=== PATIENT | male | born 1990 | race Two or more races ===

== ENCOUNTER 2016-09-28 01:37 | Emergency (ER) | payer OTHER, MEDICAID ==
[2016-09-28 01:50] VITALS: PULSE 71
--- NOTE | 2016-09-28 02:33 | EDPHY ---
H & P Stated Complaint: burning with urination testicular discomfort reflux sx Time Seen by Provider: 09/28/16 02:05 HPI/ROS: Chief Complaint: Burning with urination HPI: 25-year-old male started having burning with urination or urinary frequency at 7 o'clock yesterday evening. Has a history of urinary tract infections in the past. Some subjective chills. No back pain. Some discomfort in his groin. Does not have a history of sexually transmitted disease. Is currently in a monogamous relationship. No diarrhea or constipation. No nausea or vomiting. No abdominal pain. No back or flank pain. ROS: 10 point Review of Systems is negative except as noted in the HPI. PMH: None known medications: None Allergies: No known drug allergies Social History: No smoking, occasional alcohol, no recreational drug use Family History: non-contributory Physical Exam: Gen: Awake, Alert, No Distress HEENT: Nose: no rhinorrhea Eyes: PERRLA, EOMI Mouth: Moist mucosa Neck: Supple, no JVD Chest: nontender, lungs clear to auscultation Heart: S1, S2 normal, no murmur Abd: Soft, non-tender, no guarding Genital: Testes are distended, there are nontender, there is no swelling, there is normal lie, there is no scrotal masses, normal cremasteric Back: no CVA tenderness, no midline tenderness Ext: no edema, non-tender Skin: no rash Neuro: CN II-XII intact, Sensation grossly intact, Strength 5/5 in bilateral upper and lower extremities - Personal History Current Tetanus/Diphtheria Vaccine: Yes Current Tetanus Diphtheria and Acellular Pertussis (TDAP): Yes - Medical/Surgical History Hx Asthma: No Hx Chronic Respiratory Disease: No Hx Diabetes: No Hx Cardiac Disease: No Hx Renal Disease: No Hx Cirrhosis: No Hx Alcoholism: No Hx HIV/AIDS: No Hx Splenectomy or Spleen Trauma: No - Social History Smoking Status: Never smoked Constitutional: Initial Vital Signs Temperature (C) 36 C 09/28/16 01:41 Heart Rate 71 09/28/16 01:41 Respiratory Rate 18 09/28/16 01:41 Blood Pressure 133/81 H 09/28/16 01:41 O2 Sat (%) 99 09/28/16 01:41 O2 Delivery Mode Room Air Allergies/Adverse Reactions: No Known Allergies Allergy (Unverified 09/28/16 01:41) Home Medications: Medication Instructions Recorded NK [No Known Home Meds] 09/28/16 Medical Decision Making ED Course/Re-evaluation: Patient's UA is negative. He is not complaining of pain and burning in his urethra. STD GC chlamydia has been sent. Does not until later today. Will treat him with ceftriaxone and azithromycin here. He can follow up later with those results. Will send him home with analgesia as well. He will return for any worsening problems. Otherwise he continues to have symptoms he will follow up with Urology. - Data Points Laboratory Results: 09/28/16 09/28/16 02:00 02:00 Urine Color PALE YELLOW Urine Appearance CLEAR Urine pH 6.0 (5.0-7.5) Ur Specific [place] 1.001 L (1.002-1.030) Urine Protein NEGATIVE (NEGATIVE) Urine Ketones NEGATIVE (NEGATIVE) Urine Blood NEGATIVE (NEGATIVE) Urine Nitrate NEGATIVE (NEGATIVE) Urine Bilirubin NEGATIVE (NEGATIVE) Urine Urobilinogen NEGATIVE EU EU (0.2-1.0) Ur Leukocyte Esterase NEGATIVE (NEGATIVE) Urine RBC NONE SEEN /hpf /hpf (0-3) Urine WBC 1-3 /hpf /hpf (0-3) Ur Epithelial Cells NONE SEEN /lpf /lpf (NONE-1+) Urine Glucose NEGATIVE (NEGATIVE) C.trachomatis RNA (TMA) Pending N.gonorrhoeae RNA (TMA) Pending Medications Given: Discontinued Medications Oxycodone/Acetaminophen (Percocet 5/325) 1 tab PO EDNOW ONE Stop: 09/28/16 03:25 Last Admin: 09/28/16 03:29 Dose: 1 tab Departure - Departure Disposition: Home, Routine, Self-Care Clinical Impression: Dysuria Condition: Good Instructions: Dysuria (ED), Hydrocodone/Acetaminophen (By mouth) Additional Instructions: Call in the next day or two to get your STD test results. If these tests are negative you should follow up with Urology for further evaluation of your symptoms. Referrals: KENZIE SALMON [Other] - As per Instructions Suraj Ziegler MD [Medical Doctor] - As per Instructions
[2016-09-28 03:01] LABS: COLOR PALE YELLOW; LEUKOCYTE ESTERASE,URINE NEGATIVE (NEGATIVE); NITRITE,URINE NEGATIVE (NEGATIVE)
[2016-09-28 03:21] LABS: RBC,URINE NONE SEEN /hpf (0-3)
[2016-09-28] MEDS ORDERED: OXYCODONE/APAP 5/325 TAB PO ONE (03:24)
[2016-09-28] MEDS ORDERED: AZITHROMYCIN 250 MG TAB PO ONE (03:42)
[2016-09-28] MEDS ORDERED: CEFTRIAXONE IM 350 MG/ML SYRINGE IM ONE (03:43)
[2016-09-28] MEDS ORDERED: HYDROCOD/APAP 5/325 PREPACK#6 BTL TAKEHOME ONE ×2 (04:09)
[2016-09-28 04:18] VITALS: BP 132/70; RESP 16; TEMP 98.1; O2SAT 98
[2016-09-28 13:37] LABS: CHLAMYDIA AMPLIFICATION GENPRB NEGATIVE (NEGATIVE)
== END 2016-09-28 04:18 | disposition home or self-care (01) ==
DX: R30.0 Dysuria (principal)
CPT/HCPCS: J0696